=== PATIENT | male | born 1975 | race Hispanic/Latino ===

== ENCOUNTER 2019-08-12 12:11 | Emergency (ER) | payer SELFPAY ==
[2019-08-12] MEDS ORDERED: DEXAMETHASONE SOD PHOSPHATE 10MG/ML 1ML VIAL ONE (12:52)
[2019-08-12] MEDS ORDERED: ORPHENADRINE CITRATE 30 MG/ML ML ONE (12:52)
[2019-08-12] MEDS ORDERED: KETOROLAC TROMETHAMINE 30MG/ML ONE (12:53)
== END 2019-08-12 15:19 | disposition home or self-care (01) ==
LOC: EDH 12:11
DX: M62.830 Muscle spasm of back (principal); R11.0 Nausea
CPT/HCPCS: 96372 ×3; 99284; J1100; J1885; J2360

== ENCOUNTER 2024-04-23 09:10 | Emergency (ER) | payer SELFPAY ==
[~2024-04-23] VITALS: Ht 175.3 cm; Wt 77.1 kg
[2024-04-23 09:27] VITALS: BP 187/83; PULSE 83; RESP 18; TEMP 97.6; O2SAT 99
[2024-04-23] MEDS ORDERED: CYCL5TAB PO (10:34)
[2024-04-23] MEDS ORDERED: IBUP-2071 PO (10:34)
[2024-04-23] MEDS: morPHINE 2 MG SYG IM ONE (11:41)
== END 2024-04-23 11:51 | disposition home or self-care (01) ==
LOC: EDH 09:10
DX: G89.29 Other chronic pain (principal); M54.9 Dorsalgia, unspecified; M51.16 Intervertebral disc disorders with radiculopathy, lumbar region; M19.09 Primary osteoarthritis, other specified site; Z79.899 Other long term (current) drug therapy; Z98.890 Other specified postprocedural states; V89.2XXA Person injured in unspecified motor-vehicle accident, traffic, initial encounter; Y93.89 Activity, other specified; Y92.488 Other paved roadways as the place of occurrence of the external cause; Y99.8 Other external cause status
CPT/HCPCS: 99283; 96372; J2270